=== PATIENT | male | born 1990 | race Caucasian/White ===

== ENCOUNTER 2025-04-23 14:50 | Emergency (ER) | payer OTHER, SELFPAY ==
[2025-04-23 14:54] VITALS: BP 167/108
--- NOTE | 2025-04-23 17:44 | ED.SKININJ ---
HPI-Injury
General
Chief Complaint: Skin Surface Trauma
Source: patient
Exam Limitations: none
Time Seen by Provider: 04/23/25 17:04
Nursing documentation reviewed up to this point in time: agreed with
History of Present Illness-Injury
Initial Injury comments:
34-year-old male with a past medical history he was up in a tree doing yard work at his home holding a chainsaw with the left hand when it slipped and struck him in the left leg just above the knee. He is unsure of his last tetanus immunization.
He has been able to ambulate well
Past History
Past History
ED Past Medical History: None
ED Past Surgical History: Orthopedic
Review of Systems
Review of Systems
Allergies reviewed?: Yes
All Other Systems: ROS reviewed and negative except as documented in HPI and ROS
Skin Exam
Laceration
left knee just above the patella:
Length in cm: 5
Orientation: horizontal
Type of Laceration: simple
Any active bleeding?: low grade venous oozing
Distal skin color and temperature: normal-warm & good color
Normal distal neurovascular exam: Yes
Range of motion: full
Phy Exam
Physical Exam
Physical Exam:
PHYSICAL EXAMINATION:
General: no apparent distress, not acutely ill
Neuro: alert and oriented.
Psychiatric: well kept. interactive and cooperative
Musculoskeletal: Moves with ease. Full ROM of the left knee.
Skin: Warm, pink.
Course
Orders/Labs/Results
Orders:
Orders
04/23/25 14:58
Knee, Left 4 or More Views [CR Knee - Left 4 Or More View*] Urgent
Comment:
Reason For Exam: chainsaw injury left knee
04/23/25 17:44
Tetanus/Diphth/Acelpertussis [Adacel] 0.5 ml IM .ONCE ONE
Vital Signs
Initial and Last Documented VS:
Initial Vital Signs
Temp Pulse Resp BP Pulse Ox
98.9 F 104 20 167/108 97
04/23/25 14:54 04/23/25 14:54 04/23/25 14:54 04/23/25 14:54 04/23/25 14:54
Last Documented Vital Signs
Temp Pulse Resp BP Pulse Ox
98.9 F 78 18 154/101 100
04/23/25 14:54 04/23/25 18:09 04/23/25 18:09 04/23/25 18:09 04/23/25 18:09
Procedures
Laceration Closure
Left knee just above the patella:
Status of Wound: clean
Size of Wound in cm: 5
Description of Wound Edges: ragged
Preparation: cleaned with saline
Revision/Debridement: minor revision
Wound exploration: foreign body removed (3 tiny black specks) and no tendon involvement (skin and fatty tissue only involved. )
Type of Closure: single layer closure, interrupted sutures and mattress sutures
Number of sutures: 8
Additional information:
3 central mattress sutures, 5 simple interrupted sutures on the ends. ATB ointment, nonstick and gauze dressing applied, Gualberto wrap applied. Pt OOB and ambulating well.
MDM/Problems Addressed
MDM/Problems Addressed:
34-year-old male with a past medical history he was up in a tree doing yard work at his home holding a chainsaw with the left hand when it slipped and struck him in the left leg just above the knee. He is unsure of his last tetanus immunization.
He has been able to ambulate well
X-ray left knee reveals no bony abnormality. The metallic foreign body noted on x-ray is from a previous ACL repair
*Pulse Oximetry
SaO2: 97
Oxygen Mode of Delivery: Room air
Patient hypoxic: not evaluated
*Critical Care Note
Total Time (30-74mins, 75-104mins- exclusive of procedures): Not Applicable
ED Attending Note
-
Portions of this chart may have been created with voice recognition software.� Occasional wrong word or��sound alike� substitutions may have occurred due to the inherent limitations of voice recognition software.
Discharge Plan
Departure
Patient Disposition: Home (Routine Discharge)
Date of Disposition: 04/23/25
Time of Disposition: 17:53
Patient with high blood pressure during this ER visit?: No
Condition: Good
Discharge Problem:
Contact with chainsaw as cause of accidental injury, Laceration of left knee
Instructions: Laceration Repair With Stitches (DC)
Referrals:
Chong Crowley DO [Family Provider, Family Practice] - Call in 1-3 days for appt
Activity Restrictions/Additional Instructions:
As we discussed, have the sutures removed in 10 to 12 days. Keep the wound clean dry and covered except for bathing.
Wash the area daily and as needed with soap and water. apply antibiotic ointment and a fresh dressing.
Seek medical care immediately for signs of infection which may include increasing pain, swelling, redness, pus drainage, red streaks up the leg or fever,
Interventions
Interventions:
*Risk Screen - Suicide Last Done: 04/23/25 14:54
*General Assessment Last Done: 04/23/25 17:39
*Neglect/Abuse Screening Last Done: 04/23/25 14:54
*ED- Fall Risk Assessment Last Done: 04/23/25 17:39
*ED COVID-19 Vaccine History Last Done: 04/23/25 17:39
*ED Influenza Vaccine History Last Done: 04/23/25 17:39
*Nursing Disposition Last Done: 04/23/25 18:14
ED-Skin Assessment Last Done: 04/23/25 17:39
Discharge Date and Time
Discharge Date/Time: 04/23/25 18:14
Print Language: ETHIOPIAN
[2025-04-23] MEDS: ADACEL 0.5 ML IM (18:03)
[2025-04-23 18:09] VITALS: BP 154/101
== END 2025-04-23 18:14 | disposition home or self-care (01) ==
LOC: EMR 14:50
PROVIDERS: EMERGENCY PHYSICIAN Emergency Medicine; FAMILY PHYSICIAN Family Medicine
DX: S81.012A Laceration without foreign body, left knee, initial encounter (principal); W29.3XXA Contact with powered garden and outdoor hand tools and machinery, initial encounter; Y93.H2 Activity, gardening and landscaping; Y92.007 Garden or yard of unspecified non-institutional (private) residence as the place of occurrence of the external cause; Z23 Encounter for immunization
CPT/HCPCS: 99283; 12002; 90471; 73564; 90715